=== PATIENT | male | born 1955 | race African-American/Black ===

== ENCOUNTER 2017-03-30 15:14 | Emergency (ER) | payer SELFPAY ==
[~2017-03-30] VITALS: Ht 182.9 cm; Wt 86.4 kg
[2017-03-30] MEDS ORDERED: KETOROLAC TROMETHAMINE 60 MG/2 ML VIAL IM ONE (18:00)
[2017-03-30 18:30] VITALS: BP 131/68
== END 2017-03-30 19:01 | disposition home or self-care (01) ==
LOC: EMS 15:16
DX: G43.909 Migraine, unspecified, not intractable, without status migrainosus (principal); Z88.0 Allergy status to penicillin
CPT/HCPCS: 96372; 99283; J1885